=== PATIENT | female | born 1965 | race Caucasian/White ===

== ENCOUNTER 2020-06-13 14:15 | Outpatient (CLI) | payer OTHER, SELFPAY ==
--- NOTE | ~2020-06-13 | US_ITS ---
EXAMINATION: US venous doppler LE RT DATE: 06/13/2020 15:03 INDICATION: Right lower limb pain TECHNIQUE: Sam scale images without and with compression and Doppler images of the right lower extre mity veins were obtained. COMPARISON: None FINDINGS: There is thrombosis in the popliteal and posterior tibial veins. The right common femoral v ein, profunda femoral vein, femoral vein, peroneal trunk, and greater saphenous vein are patent. IMPRESSION: 1. Thrombosis of the right popliteal and posterior tibial veins. Reviewed, dictated and finalized at location B.
== END 2020-06-13 14:16 | disposition home or self-care (01) ==
LOC: ANHIMG 14:18
PROVIDERS: PCP Internal Medicine; Visit Provider Nurse Practitioner
DX: I82.431 Acute embolism and thrombosis of right popliteal vein (principal); I82.441 Acute embolism and thrombosis of right tibial vein
CPT/HCPCS: 93971

== ENCOUNTER 2020-06-13 16:15 | Outpatient (CLI) | payer OTHER, SELFPAY ==
[2020-06-13 16:45] LABS: Basophils Percent Auto 0.6 % (0.2-1.2); Eosinophils Absolute Auto 0.2 K/mm3 (0-0.3); Eosinophils Percent Auto 2.8 % (0-4.4); Hematocrit 39.4 % (37.0-47.0); Hemoglobin 13.1 g/dL (12.0-15.0); Immature Granulocyte Absolute 0.02 K/mm3 (0.00-0.031); Immature Granulocyte Percent A 0.3 % (0-0.5); Lymphocytes Absolute Auto 2.62 K/mm3 (0.9-3.2); Lymphocytes Percent Auto 40.4 % (18.3-44.2); Mean Corpuscular HGB Conc 33.2 g/dl (32-36); Mean Corpuscular Hemoglobin 30.3 pg (26-34); Mean Corpuscular Volume 91.2 fl (80-100); Mean Platelet Volume 10.4 fl (7.4-10.4); Monocytes Absolute Auto 0.5 K/mm3 (0.1-0.6); Neutrophils Absolute Auto 3.1 K/mm3 (1.3-6.7); Neutrophils Percent Auto 47.9 % (45.5-73.1); Platelet Count Result 276 k/mm3 (150-375); Red Blood Count 4.32 M/mm3 (4.2-5.4); Red Cell Distribution Width 12.4 % (11.5-14.5); White Blood Count 6.5 K/mm3 (4.5-10.0)
[2020-06-13 16:58] LABS: Alanine Aminotransferase 22 U/L (4-35); Albumin Level 4.4 g/dL (3.5-5.1); Alkaline Phosphatase 69 U/L (38-126); Anion Gap 6 mmol/L (8-16); Aspartate Amino Transferase 25 U/L (14-36); Bilirubin,Total 0.5 mg/dL (0.2-1.3); Blood Urea Nitrogen 11 mg/dL (7-17); Calcium 8.6 mg/dL (8.4-10.2); Carbon Dioxide 27 mmol/L (22-30); Chloride 106 mmol/L (98-107); Estimated Glomerular Filt Rate > 60; Glucose 91 mg/dL (65-105); Potassium 3.6 mmol/L (3.4-5.0); Sodium 139 mmol/L (137-145)
[2020-06-15 12:24] LABS: Protein S Antigen, Free 99 % normal (50-147)
[2020-06-15 18:55] LABS: APC Ratio 2.7 ratio (>=2.1)
[2020-06-15 20:49] LABS: Antithrombin III Activity 102 % normal (80-135)
[2020-06-18 20:56] LABS: Factor V (Leiden) Mutation NEGATIVE
== END 2020-06-13 16:16 | disposition home or self-care (01) ==
LOC: ANHLAB 16:18
PROVIDERS: PCP Internal Medicine; Visit Provider Nurse Practitioner
DX: I82.409 Acute embolism and thrombosis of unspecified deep veins of unspecified lower extremity (principal)
CPT/HCPCS: 36415; 80053; 81240; 81241; 85025; 85300; 85303; 85306; 85307; 93971

== ENCOUNTER 2020-06-24 16:38 | Emergency (ER) | payer OTHER, SELFPAY ==
[2020-06-24 17:53] VITALS: BP 145/90; PULSE 82; RESP 16; TEMP 36.1; O2SAT 99
--- NOTE | 2020-06-24 17:58 | PC.NURSE ---
[id number] to reach ultrasound to inform of new order for study [id number] staff unable to reach technology advisor to inform of new order from ed
--- NOTE | 2020-06-24 20:23 | ED.EXTPRO ---
HPI - Extremity Problem General Chief complaint: Extremity Problem,Nontraumatic Stated complaint: blood clot in right leg, now has groin pain Time Seen by Provider: 06/24/20 19:26 Source: patient Mode of arrival: ambulatory Limitations: no limitations History of Present Illness HPI Narrative: This is a 55-year-old female that presents the emergency department for right thigh pain. Reports this started earlier today. No known injury or trauma. Reports she was recently diagnosed with a blood clot in her right calf and has been taking Eliquis as prescribed. Reports she was concerned that her blood clot was moving which prompted her to be seen. Denies fever, erythema, edema, chest pain, or shortness of breath. Related Data Home Medications Medication Instructions Recorded Confirmed multivitamin with minerals 1 tablet PO DAILY 01/26/19 05/11/19 topiramate 50 mg tablet 100 mg PO DAILY tablet 06/13/20 06/13/20 Allergies Allergy/AdvReac Type Severity Reaction Status Date / Time No Known Allergies Allergy Verified 06/13/20 13:12 Review of Systems Review of Systems: Narrative: CONSTITUTIONAL: Denies fever CARDIOVASCULAR: Denies chest pain, or edema. RESPIRATORY: Denies dyspnea SKIN: Denies erythema MUSCULOSKELETAL: Reports myalgia. NEUROLOGIC: Denies numbness, or weakness. All systems reviewed & are unremarkable except as noted in HPI and below PMFSH Past Medical History Medical History Chicken pox Chronic bronchitis Depression History of blood clots Migraine Rotator cuff tear Skin cancer Surgical History Surgical History History of bilateral tubal ligation History of carpal tunnel surgery History of repair of right rotator cuff History of surgery on arm left forearm median repair Family History Family History Father Hypertension Family history of cardiovascular disease Family history of Alzheimer's disease Family history of dementia Heart disease Kidney disease Mother Diabetes mellitus Social History Social History Smoking status: Former smoker Smoking end date: 03/04/99 Alcohol intake: current Gender identity (if verbalized by the patient): Female Exam Narrative: Exam Narrative: GENERAL: Well-appearing, well-nourished, and in no acute distress. HEAD: Normocephalic, atraumatic. EYES: EOMI. CHEST: Clear to auscultation. No respiratory distress. No wheezes rales or rhonchi HEART: Regular rate and rhythm. No murmur heard. Normal peripheral pulses. EXTREMITIES: Normal range of motion. No edema, erythema or obvious deformity. Normal DP pulses. Normal sensation SKIN: Warm, dry, no rash. NEURO: No focal deficits. Alert and oriented x3. PSYCH: Normal mood and affect Course Consultations Consultation #1: Spoke with Dr. Chiu about patient Date: 06/24/20 Time: 20:30 Vital Signs Vital signs: Vital Signs Temperature 96.9 F L 06/24/20 17:53 Pulse Rate 82 06/24/20 17:53 Respiratory Rate 16 06/24/20 17:53 Blood Pressure 145/90 H 06/24/20 17:53 Pulse Oximetry 99 06/24/20 17:53 Temperature 96.9 F L 06/24/20 17:53 Pulse Rate 82 06/24/20 17:53 Respiratory Rate 16 06/24/20 17:53 Blood Pressure 145/90 H 06/24/20 17:53 Pulse Oximetry 99 06/24/20 17:53 MDM - Extremity (Nontraumatic) MDM Narrative Medical decision making narrative: Patient presents emergency department for right inner thigh pain that started this afternoon. No injuries or trauma. Normal range of motion. No erythema or edema. Normal peripheral pulses and sensation. Was recently diagnosed with a DVT of the right popliteal and posterior tibial veins. Has been taking Eliquis as prescribed. Today patient presented after I am able to obtain an ultrasound.
[2020-06-24] MEDS: ACETAMINOPHEN 500 MG TABLET 1000 MG PO (20:47)
[2020-06-24 20:49] VITALS: BP 132/80; PULSE 76; RESP 18; O2SAT 99
== END 2020-06-24 20:46 | disposition home or self-care (01) ==
PROVIDERS: Emergency Provider Emergency Medicine; PCP Internal Medicine
DX: M79.651 Pain in right thigh (principal); Z86.718 Personal history of other venous thrombosis and embolism; Z79.01 Long term (current) use of anticoagulants; Z85.828 Personal history of other malignant neoplasm of skin; Z87.891 Personal history of nicotine dependence
CPT/HCPCS: 99282; A9270

== ENCOUNTER 2020-06-25 07:15 | Outpatient (CLI) | payer OTHER, SELFPAY ==
--- NOTE | ~2020-06-25 | US_ITS ---
EXAMINATION: US venous doppler LE RT DATE: 06/25/2020 07:42 INDICATION: Right lower limb pain. TECHNIQUE: Grayscale ultrasound images without and with compression and Doppler ultrasound images of the right lower extremity veins were obtained. COMPARISON: Ultrasound 06/13/2020 FINDINGS: The visualized portions of right common femoral vein, femoral vein, peroneal veins, posterior tibial veins, and greater saphenous vein outflow are patent. There is thrombus in right profunda femoral vei n and popliteal vein. IMPRESSION: 1. Deep vein thrombosis involving right profunda femoral vein and popliteal vein. Reviewed, dictated and finalized at location A. IMPRESSION: 1. Deep vein thrombosis involving right profunda femoral vein and popliteal ve in.
== END 2020-06-25 07:16 | disposition home or self-care (01) ==
LOC: ANHIMG 07:17
PROVIDERS: PCP Internal Medicine; Visit Provider Physician Assistant
DX: I82.411 Acute embolism and thrombosis of right femoral vein (principal); I82.431 Acute embolism and thrombosis of right popliteal vein
CPT/HCPCS: 93971

== ENCOUNTER → 2020-08-10 16:46 | Outpatient (CLI) | payer OTHER, SELFPAY ==
--- NOTE | ~2020-08-10 | MM_ITS ---
EXAMINATION: MM screening josse BI w sandra HISTORY: Screening mammogram TECHNIQUE: Craniocaudal and mediolateral oblique 3-D tomosynthesis images were obtained and synthetic 2-D images were generated. CAD analysis was submitted and interpreted. COMPARISON: 01/12/2017, 01/26/2013 bilateral digital screening mammogram examinations BREAST PARENCHYMAL COMPOSITION: There are scattered areas of fibroglandular density. FINDINGS: There is no evidence of suspicious mass, calcification, or architectural distortion to sugg est malignancy in either breast. There has been no suspicious interval change. IMPRESSION: 1. No mammographic evidence of malignancy. 2. Recommend routine screening mammography in one year. BI-RADS Category 1: Negative Reviewed, dictated and finalized at location A.
== END ==
PROVIDERS: PCP Internal Medicine; Visit Provider Obstetrics & Gynecology
DX: Z12.31 Encounter for screening mammogram for malignant neoplasm of breast (principal)
CPT/HCPCS: 77063; 77067

== ENCOUNTER 2020-10-28 12:38 | Outpatient (CLI) | payer OTHER, SELFPAY ==
--- NOTE | ~2020-10-28 | US_ITS ---
EXAMINATION: US venous doppler LE RT DATE: 10/28/2020 13:11 INDICATION: Acute deep venous thrombosis of the proximal vein of the right lower limb TECHNIQUE: Grayscale ultrasound images without and with compression and Doppler ultrasound images of the right lower extremity veins were obtained. COMPARISON: 06/25/2020 FINDINGS: The visualized portions of right common femoral vein, profunda (deep) femoral vein, femoral vein, pop liteal vein, peroneal trunk, posterior tibial veins, peroneal veins, gastrocnemius vein and greater s aphenous vein outflow are patent. IMPRESSION: 1. No deep venous thrombosis in the right lower limb. Reviewed, dictated and finalized at location B.
== END 2020-10-28 12:39 | disposition home or self-care (01) ==
LOC: ANHIMG 12:45
PROVIDERS: PCP Internal Medicine; Visit Provider Internal Medicine Hematology & Oncology
DX: I82.4Y1 Acute embolism and thrombosis of unspecified deep veins of right proximal lower extremity (principal)
CPT/HCPCS: 93971

== ENCOUNTER 2021-02-10 07:17 | Emergency (ER) | payer OTHER, SELFPAY ==
--- NOTE | ~2021-02-10 | US_ITS ---
EXAMINATION: US venous doppler LE RT DATE: 02/10/2021 08:08 INDICATION: Right lower limb pain swelling TECHNIQUE: Sam scale images without and with compression and Doppler images of the right lower extre mity veins were obtained. COMPARISON: 10/28/2020 FINDINGS: The profunda femoral vein is partially compressible. There is thrombosis of the right dista l femoral vein and right popliteal vein. The right common femoral vein, peroneal trunk, posterior tib ial veins, and greater saphenous vein are patent. IMPRESSION: 1. Thrombosis in the distal femoral, popliteal, profunda femoral veins. Reviewed, dictated and finalized at location A. ICAL INTERVIEWER
[2021-02-10 07:41] VITALS: BP 147/81; PULSE 102; RESP 18; TEMP 36.6; O2SAT 98
--- NOTE | 2021-02-10 08:38 | ED.EXTPRO ---
HPI - Extremity Problem General Chief complaint: Extremity Problem,Nontraumatic Stated complaint: leg pain, hx dvt Time Seen by Provider: 02/10/21 07:24 History of Present Illness HPI Narrative: Patient is a 55-year-old female who presents ER with right lower extremity pain. Ongoing over the last 4 to 5 days. Feels similar to previous DVT. She just discontinued Eliquis 3 months ago. She has had no recent injury or prolonged immobility. She has had a work-up with Dr. Kramer that did not result in finding a genetic clotting disorder. Patient has no chest pain or shortness of breath. She has had no unexplained syncope. Denies any new swelling to the leg. Feels like there is a tightness throughout the entirety of the leg that is tender to touch. No warmth or heat. Related Data Home Medications Medication Instructions Recorded Confirmed multivitamin with minerals 1 tablet PO DAILY 01/26/19 09/15/20 Allergies Allergy/AdvReac Type Severity Reaction Status Date / Time No Known Allergies Allergy Verified 06/13/20 13:12 Review of Systems Review of Systems: All systems reviewed & are unremarkable except as noted in HPI and below Constitutional: Constitutional: Denies chills, Denies fever(s) and Denies weakness Cardiovascular: Cardiovascular: Denies chest pain, Denies rapid heart rate and Denies radiating jaw, neck or arm pain Respiratory: Respiratory: Denies cough and Denies dyspnea Musculoskeletal: Musculoskeletal: Denies arthralgias and Denies joint swelling Comments: Right leg pain Neurologic: Denies syncope, Denies focal weakness and Denies numbness PMFSH Past Medical History Medical History Chicken pox Chronic bronchitis Depression History of blood clots Migraine Rotator cuff tear Skin cancer Surgical History Surgical History History of bilateral tubal ligation History of carpal tunnel surgery History of repair of right rotator cuff History of surgery on arm left forearm median repair Family History Family History (Updated 07/04/20 @ 09:05 by Eli Damon CMA) Father Hypertension Family history of cardiovascular disease Family history of Alzheimer's disease Family history of dementia Heart disease Kidney disease Blood clot associated with vein wall inflammation Mother Diabetes mellitus Cerebrovascular accident Social History Social History (Reviewed 05/03/21 @ 09:03 by JAVID Duke Smoking status: Former smoker Smoking end date: 03/04/99 Alcohol intake: current Alcohol use details: occasionally Gender identity (if verbalized by the patient): Female Exam Narrative: GENERAL: Well-appearing, well-nourished, and in no acute distress. HEAD: Normocephalic, atraumatic. ENT: Mucous membranes moist. CHEST: Clear to auscultation. No respiratory distress. HEART: Regular rate and rhythm. Normal peripheral pulses. EXTREMITIES: Normal range of motion. No edema. Right lower extremity tender to touch without warmth/redness. Normal dorsalis pedis pulses bilaterally. SKIN: Warm, dry, no rash. NEURO: Alert and oriented x3. PSYCH: Normal mood and affect. Course Course Emergency Course: Contacted patient's PCP. Will initiate Eliquis. Patient is to follow-up in 1 to 2 weeks for further discussion about prolonged anticoagulation therapy. Patient is aware of diagnosis and treatment plan. No additional concerns. Return precautions discussed. Vital Signs Vital signs: Vital Signs Temperature 97.9 F 02/10/21 07:41 Pulse Rate 102 H 02/10/21 07:41 Respiratory Rate 18 02/10/21 07:41 Blood Pressure 147/81 H 02/10/21 07:41 Pulse Oximetry 98 02/10/21 07:41 Temperature 97.9 F 02/10/21 07:41 Pulse Rate 102 H 02/10/21 07:41 Respiratory Rate 18 02/10/21 07:41 Blood Pressure 147/81 H 02/10/21 07:41 Pulse Oximetry 98 02/10/21 07:41
== END 2021-02-10 09:08 | disposition home or self-care (01) ==
PROVIDERS: Emergency Provider Emergency Medicine; PCP Internal Medicine
DX: I82.431 Acute embolism and thrombosis of right popliteal vein (principal); I82.411 Acute embolism and thrombosis of right femoral vein; Z85.828 Personal history of other malignant neoplasm of skin; Z87.891 Personal history of nicotine dependence
CPT/HCPCS: 93971; 99284

== ENCOUNTER → 2021-06-06 08:06 | Outpatient (CLI) | payer OTHER, SELFPAY ==
[2021-06-06 11:34] LABS: SARS-CoV-2 RNA PCR Negative
== END ==
PROVIDERS: PCP Internal Medicine; Visit Provider Clinical Nurse Specialist
DX: J32.9 Chronic sinusitis, unspecified (principal); Z20.822 Contact with and (suspected) exposure to COVID-19
CPT/HCPCS: C9803; U0003; U0005

== ENCOUNTER → 2021-10-17 11:05 | Outpatient (CLI) | payer OTHER, SELFPAY ==
--- NOTE | ~2021-10-17 | US_ITS ---
US abdomen limited INDICATION: Right upper quadrant pain PROCEDURE: Realtime right upper abdominal ultrasound. COMPARISON: No prior studies for comparison. FINDINGS: The pancreas is normal without focal mass or pancreatic ductal dilation. Liver echotexture is increased, consistent with fatty infiltration There is normal directional flow in the portal vei n. The gallbladder is normal without stones, gallbladder wall thickening or pericholecystic fluid. Comm on bile duct measures 5 mm. No sonographic Garcia's sign. IMPRESSION: 1: Hepatic steatosis. Reviewed, dictated and finalized at location B. IMPRESSION: 1: Hepatic steatosis.
== END ==
PROVIDERS: PCP Internal Medicine; Visit Provider Nurse Practitioner
DX: R10.11 Right upper quadrant pain (principal); K76.0 Fatty (change of) liver, not elsewhere classified
CPT/HCPCS: 76705

== ENCOUNTER 2021-10-20 07:32 | Outpatient (CLI) | payer OTHER, SELFPAY ==
--- NOTE | ~2021-10-20 | NM_ITS ---
EXAMINATION: NM hepatobiliary wo pharm DATE: 10/20/2021 10:38 INDICATION: Right upper quadrant abdominal pain COMPARISON: None. TECHNIQUE: 5.2 mCi Tc-99m mebrofenin (Choletec) was administered intravenously. Scintigraphic images of the abdomen were obtained for one hour. At the 1 hour time point, the patient drank 8 oz Ensure, and imaging was continued for 60 minutes. Gallbladder ejection fraction was calculated by the technol ogist. FINDINGS: There is normal clearance of radiotracer from the blood pool. There is homogeneous tracer u ptake by the liver. Activity progresses to the bowel and gallbladder. The gallbladder ejection fract ion (GBEF) is 28%. Note that with this technique, normal GBEF >= 33%. IMPRESSION: 1. Decreased gallbladder ejection fraction which could be seen with gallbladder dysfunction or chron ic cholecystitis in the appropriate clinical setting. Reviewed, dictated and finalized at location A. IMPRESSION: 1. Decreased gallbladder ejection fraction which could be seen with gallbladde r dysfunction or chronic cholecystitis in the appropriate clinical setting.
== END 2021-10-20 07:33 | disposition home or self-care (01) ==
LOC: ANHIMG 07:35
PROVIDERS: PCP Internal Medicine; Visit Provider Nurse Practitioner
DX: R10.11 Right upper quadrant pain (principal)
CPT/HCPCS: 78226; A9537

== ENCOUNTER 2021-10-26 16:29 | Outpatient (CLI) | payer OTHER, SELFPAY ==
[2021-10-26 16:49] LABS: Basophils Absolute Auto 0.1 K/mm3 (0.0-0.1); Basophils Percent Auto 0.8 % (0.2-1.2); Eosinophils Absolute Auto 0.2 K/mm3 (0-0.3); Eosinophils Percent Auto 2.8 % (0-4.4); Hematocrit 40.5 % (37.0-47.0); Hemoglobin 12.9 g/dL (12.0-15.0); Immature Granulocyte Absolute 0.02 K/mm3 (0.00-0.031); Immature Granulocyte Percent A 0.3 % (0-0.5); Lymphocytes Absolute Auto 3.31 K/mm3 (0.9-3.2); Lymphocytes Percent Auto 46.4 % (18.3-44.2); Mean Corpuscular HGB Conc 31.9 g/dl (32-36); Mean Corpuscular Hemoglobin 30.2 pg (26-34); Mean Corpuscular Volume 94.8 fl (80-100); Mean Platelet Volume 10.2 fl (7.4-10.4); Monocytes Absolute Auto 0.7 K/mm3 (0.1-0.6); Monocytes Percent Auto 9.8 % (2.6-8.5); Neutrophils Absolute Auto 2.8 K/mm3 (1.3-6.7); Neutrophils Percent Auto 39.9 % (45.5-73.1); Platelet Count Result 274 k/mm3 (150-375); Red Blood Count 4.27 M/mm3 (4.2-5.4); Red Cell Distribution Width 12.7 % (11.5-14.5); White Blood Count 7.1 K/mm3 (4.5-10.0)
[2021-10-26 17:02] LABS: Alanine Aminotransferase 25 U/L (6-35); Albumin Level 4.3 g/dL (3.5-5.1); Alkaline Phosphatase 72 U/L (38-126); Anion Gap 9 mmol/L (8-16); Aspartate Amino Transferase 23 U/L (14-36); Bilirubin,Total 0.3 mg/dL (0.2-1.3); Blood Urea Nitrogen 15 mg/dL (7-17); Calcium 8.5 mg/dL (8.4-10.2); Carbon Dioxide 24 mmol/L (22-30); Chloride 109 mmol/L (98-107); Estimated Glomerular Filt Rate > 60; Glucose 103 mg/dL (65-110); Potassium 4.6 mmol/L (3.4-5.0); Sodium 142 mmol/L (137-145)
== END 2021-10-26 16:30 | disposition home or self-care (01) ==
LOC: ANHLAB 16:30
PROVIDERS: PCP Internal Medicine; Visit Provider Nurse Practitioner
DX: Z13.29 Encounter for screening for other suspected endocrine disorder (principal)
CPT/HCPCS: 36415; 80053; 85025

== ENCOUNTER 2021-11-01 01:46 | Day surgery (SDC) | payer OTHER, SELFPAY ==
[2021-10-30 09:26] VITALS: BMI 37.9
--- NOTE | 2021-10-30 09:38 | PC.NURSE ---
Report to the Outpatient Waiting Room, entrance under the green pavilion located off [facility], at time 1130 on date 11/01/21. OR Time: 1330. - You and your visitor will be asked to self-screen and do not enter if you have any COVID symptoms. - Only one visitor and NO children visitors are allowed at this time. - The patient visitor is requested to leave or wait in car when not with patient due to restrictions. - A mask is required within the hospital. Patients may have clear liquids (water, carbonated beverages, clear teas, apple juice) until 3 hours prior to surgery with a maximum of 20 ounces. - No food from midnight until time of surgery Take the following medications with a SIP of water the morning of surgery: DULOXETINE, TOPIRAMATE Medications to discontinue per physician: RIRI Date to take last dose: 10/30/21 Please no make-up, nail qatari, hairspray, perfume, deodorant, or body powder the day of surgery. No jewelry (including any body piercings) or valuables the day of surgery, leave them at home. Please take a shower or bath the night before, or the morning of, surgery with an antibacterial soap(HIBICLENS). Wear comfortable, loose fitting clothing. - Jewelry must be removed prior to entering the operating room. Rings and piercings that are not removed may be cut off. - The hospital will not accept responsibility for valuables. - Please leave all valuables, including medications, at home the day of surgery. If you are going home after surgery, a licensed driver guard must drive you home. - NO public transportation without another adult. - We recommend that an adult stay with you for 24 hours following discharge. - We also recommend that you do not drive, make important decision, drink alcoholic beverages, or take any drugs that were not prescribed by your health care provider for at least 24 hours after your discharge time. Follow any additional instructions given to you from your surgeon. If you or anyone in your household have experienced Covid symptoms in the past week, please notify your surgeon or the nurse liaison at the phone number below for possible testing. Telephone instructions given to PT Kerri BUI and asked if any additional questions and then verbalized understanding. Patient advised to call surgeon office or pre surgery nurse liaison [phone] if any additional questions.
--- NOTE | 2021-10-31 13:27 | P.PNAN_ITS ---
Anes - Initial Pre Proc Eval Procedure: Operation Date: 11/01/21 13:30 Proposed Procedures p Laparoscopic Cholecystectomy - Chrissy Parisi MD Date/Time: 10/31/21 13:27 Surgeon: Chrissy Parisi MD Pre Op Diagnosis: Chronic Cholecystitis Patient Data Age: 56 Gender: F Height: 1.6 m Weight: 97.07 kg Allergies Allergy/AdvReac Type Severity Reaction Status Date / Time No Known Allergies Allergy Verified 11/01/21 11:35 Home Medications Medication Instructions Recorded Confirmed Type duloxetine 60 mg capsule,delayed 60 mg PO DAILY #90 caps 05/01/21 11/01/21 Rx release topiramate 50 mg tablet 100 mg PO DAILY #270 tabs 05/11/21 11/01/21 Rx apixaban 5 mg tablet (Eliquis) 5 mg PO BID #60 tabs 08/10/21 11/01/21 Rx calcium carbonate 200 mg calcium 200 mg PO BID 10/17/21 11/01/21 History (500 mg) chewable tablet (Tums) Patient hx anesthesia problems: none Family hx anesthesia problems: none Results Review: All pre-operative results and documents have been reviewed as part of the pre- operative evaluation. [facility] Past Medical History Medical History (Updated 10/31/21 @ 13:28 by Arnold Ortiz MD) Chicken pox Chronic bronchitis Depression History of blood clots Hypercoagulable state Migraine Obesity Rotator cuff tear Skin cancer Surgical History Surgical History History of bilateral tubal ligation History of carpal tunnel surgery History of repair of right rotator cuff History of surgery on arm left forearm median repair Family History Family History Father Hypertension Family history of cardiovascular disease Family history of Alzheimer's disease Family history of dementia Heart disease Kidney disease Blood clot associated with vein wall inflammation Mother Diabetes mellitus Cerebrovascular accident Social History Social History Smoking packs per day: 0.5 Smoking cigarettes per day: 10.0 Years smoked: 15 Smoking pack-years: 7.50 Smoking status: Former smoker Tobacco type: cigarettes Smoking end date: 03/04/99 Alcohol intake: current Drinks per week: 2 Alcohol use details: occasionally Substance use: never Substance use type: does not use Living arrangements: with family Gender identity (if verbalized by the patient): Female Spiritual care concerns: No Anes - Eval Final PreProcedure Day of Procedure 10/31/21 13:27 Patient weight: obese Heart: regular rate and rhythm Lungs: clear to auscultation and normal air movement Airway: Mallampati scale class II Neurological: alert and oriented Last oral intake: >/= 8 hours ASA classification: III Emergent: no Anesthetic plan: proceed Anesthesia type and monitoring: general ETT Results Review: All pre-operative results and documents have been reviewed as part of the pre- operative evaluation. Informed Consent: The patient's anesthetic plan and its attendant risks and benefits were discussed with the patient/family/POA. Questions were solicited and answers provided to the satisfaction of the patient/family/POA.
[2021-11-01] VITALS (10 sets, daily range): BP systolic 88–142; BP diastolic 41–87; PULSE 42–76; RESP 10–20; TEMP 36.3; O2SAT 95–99
[2021-11-01] MEDS: LACTATED RINGERS 1,000 ML 30 ML IV CONT ×3 (12:35→16:35)
[2021-11-01] MEDS: ACETAMINOPHEN 500 MG TABLET 1000 MG PO (12:48)
[2021-11-01] MEDS: KETOROLAC 15 MG/ML VIAL (*BKC) IV PUSH (12:50)
[2021-11-01 12:57] LABS: Amylase 63 U/L (30-110); Lipase 99 U/L (23-300)
--- NOTE | 2021-11-01 13:35 | WPDHPUPDATE1 ---
History and Physical Update Update Date/Time: 11/01/21 13:35 History and Physical has been reviewed, including an updated exam of the patient. There are NO changes in the patient's condition. Risks, benefits, and alternatives have been discussed and questions answered. Patient agrees to proceed with procedure.
[2021-11-01] MEDS: ceFAZolin 2 GM/D5W 50 ML 2 GM/50 ML BAG IVPB (13:55)
--- NOTE | 2021-11-01 15:00 | W.PM.PROC2 ---
Procedure Note - Detailed Date of Procedure 11/01/21 Pre-op Diagnosis Chronic Cholecystitis Post-op Diagnosis Same Procedure Performed Laparoscopic cholecystectomy Surgeon Chrissy Parisi MD Anesthesia General Indications 56-year-old female presented to the office complaining of postprandial right upper quadrant abdominal pain associated with nausea and vomiting. Workup including imaging significant for chronic cholecystitis. Findings chronic cholecystitis Description of Procedure The patient was taken to the operating room placed in the supine position. After adequate induction of general anesthesia, the patient was prepped and draped in normal sterile fashion. A time-out was then performed to verify the patient's identity as well as the procedure being performed. I then made a 5 mm incision in the infraumbilical region. Through this, a Veress needle was placed into the peritoneal cavity and CO2 gas was then insufflated. After adequate pneumoperitoneum was achieved, the Veress needle was removed and a 5 mm optiview trocar was placed through this incision under direct visualization. I then placed the laparoscope through this trocar site and under direct visualization placed a further 12 mm subxiphoid port as well as 2 additional 5 mm ports in the right upper abdomen. The gallbladder was then identified and was noted to be moderately inflamed and distended. I was able to place a grasper at the dome of the gallbladder and this was retracted anterior and cephalad up over the liver. A 2nd retractor was then placed at the infundibulum and retracted laterally, this allowed visualization of the triangle of Calot. I then was able to visualize the cystic duct in its entirety from its proximal insertion into the gallbladder, to its distal junction with the common hepatic/common bile duct junction. At this point, I carefully skeletonized the proximal cystic duct with the [place] dissector. I then clipped and transected the proximal cystic duct. Next I visualized the cystic artery. Again the artery was skeletonized, clipped, and transected. I then used the Bovie cautery to take down the peritoneal attachments of the gallbladder off the liver bed. This was somewhat difficult given the amount of inflammation in the posterior space, as well as an intrahepatic gallbladder. Once the gallbladder specimen was completely detached, an endo-pouch was placed through the 12 mm port site. I then placed the gallbladder specimen into the Endo pouch and removed the endo-pouch from the 12 mm port site. The specimen will now be sent to pathology for further review. I then copiously irrigated the right upper quadrant. Hemostasis was noted in the liver bed, the clips were noted to be in good position on both the cystic duct stump and the cystic artery stump. No other pathology was noted in the right upper quadrant. I then moved the laparoscope to the subxiphoid port. No iatrogenic injury or other pathology was noted in the lower abdomen. I then closed the 12 mm trocar site under direct visualization using the Dayo cone and 0 Vicryl suture. At this point, the abdomen was desufflated and all ports removed. All port sites were then closed with 4.O Monocryl subcuticular sutures. Dermabond was placed on each incision. The patient tolerated the procedure well, was extubated in the operating room postoperative and will be transferred to the recovery room in stable condition Estimated Blood Loss 10 Drains No Packing No Pathology Yes Complications No immediate complications Condition Stable Disposition PACU [facility] Billing Surgery - Charge Forward: Surgery Billing
[2021-11-01] MEDS: ONDANSETRON INJ 4 MG/2 ML VIAL IV PUSH (15:27)
[2021-11-01] MEDS: fentaNYL CITRATE INJ (*CRX) 100 MCG/2 ML VIAL 25 MCG IV PUSH ×8 (15:27→16:53)
[2021-11-01] MEDS: SCOPOLAMINE 1.5 MG PATCH TRANSDERM (16:42)
[2021-11-01] MEDS: diphenhydrAMINE HCl INJ 50 MG/ML VIAL 25 MG IV PUSH (16:42)
[2021-11-01] MEDS: oxyCODONE HCL (*CRX) 5 MG TAB IR PO (17:22)
== END 2021-11-01 17:48 | disposition home or self-care (01) ==
PROVIDERS: PCP Internal Medicine; Visit Provider Surgery
PROC: 0FT44ZZ Resection of Gallbladder, Percutaneous Endoscopic Approach (ICD-10-PCS; CPT 47562; principal; 2021-11-01 13:30)
DX: K81.1 Chronic cholecystitis (principal); Z79.01 Long term (current) use of anticoagulants; Z86.718 Personal history of other venous thrombosis and embolism; Z87.891 Personal history of nicotine dependence; E66.9 Obesity, unspecified; Z68.37 Body mass index [BMI] 37.0-37.9, adult
CPT/HCPCS: 47562; 36415; 82150; 83690; 86850; 86900; 86901; 88304; A9270; J0690; J1100; J1200; J1885; J2250; J2405; J2704; J2710; J3010; J7120

== ENCOUNTER 2021-11-15 11:59 | Outpatient (CLI) | payer OTHER, SELFPAY ==
[2021-11-15 12:25] LABS: Alanine Aminotransferase 36 U/L (6-35); Albumin Level 4.3 g/dL (3.5-5.1); Alkaline Phosphatase 98 U/L (38-126); Anion Gap 12 mmol/L (8-16); Aspartate Amino Transferase 29 U/L (14-36); Bilirubin,Total 0.7 mg/dL (0.2-1.3); Blood Urea Nitrogen 14 mg/dL (7-17); Calcium 8.9 mg/dL (8.4-10.2); Carbon Dioxide 21 mmol/L (22-30); Chloride 106 mmol/L (98-107); Estimated Glomerular Filt Rate > 60; Glucose 102 mg/dL (65-110); Lipase 133 U/L (23-300); Potassium 4.1 mmol/L (3.4-5.0); Sodium 139 mmol/L (137-145)
== END 2021-11-15 12:00 | disposition home or self-care (01) ==
PROVIDERS: PCP Internal Medicine; Visit Provider Surgery
DX: R10.13 Epigastric pain (principal)
CPT/HCPCS: 36415; 80053; 83690

== ENCOUNTER → 2021-11-21 09:35 | Outpatient (CLI) | payer OTHER, SELFPAY ==
--- NOTE | ~2021-11-21 | CT_ITS ---
EXAMINATION: CT abdomen wo con DATE: 11/21/2021 09:59 INDICATION: Epigastric pain. Status post cholecystectomy. TECHNIQUE: Computed tomography (CT) of the abdomen and pelvis was performed without intravenous contr ast. The dose-length product was 697.81 mGy-cm. Automated exposure control and iterative reconstructi on technique were employed. COMPARISON: None. FINDINGS: Lung bases are unremarkable. No significant pleural or pericardial effusion. Heart size nor mal. Status post cholecystectomy. There are left renal parapelvic cysts. No renal stones. Status post cholecystectomy. No significant hiatal hernia. The liver, spleen, pancreas, adrenal glands and right kidney are unremarkable. No significant hydrone phrosis. Nonobstructive bowel gas pattern. No free air or free fluid. No acute osseous abnormality. IMPRESSION: 1. No acute abdominal abnormality. Reviewed, dictated and finalized at location A.
== END ==
PROVIDERS: PCP Internal Medicine; Visit Provider Surgery
DX: R10.13 Epigastric pain (principal)
CPT/HCPCS: 74150

== ENCOUNTER 2021-12-04 02:24 | Day surgery (SDC) | payer OTHER, SELFPAY ==
[2021-11-23 13:23] VITALS: BMI 37.8
[2021-12-04 12:17] VITALS: BP 126/78; PULSE 95; RESP 16; TEMP 36.2; O2SAT 99; BMI 37.2
[2021-12-04] MEDS: LACTATED RINGERS 1,000 ML 150 ML IV CONT (12:27)
--- NOTE | 2021-12-04 12:53 | WPDANESEPPF ---
Anes - Initial Pre Proc Eval Procedure: Operation Date: 12/04/21 13:30 Proposed Procedures p Esophagogastroduodenoscopy - Ponce Bates MD Date/Time: 12/04/21 12:53 Surgeon: Ponce Bates MD Pre Op Diagnosis: Epigastric pain Patient Data Age: 56 Gender: F Height: 1.6 m Weight: 95.3 kg Last Vital Signs Temp 97.2 F L 12/04/21 12:17 Pulse 95 12/04/21 12:17 Resp 16 12/04/21 12:17 BP 126/78 12/04/21 12:17 Pulse Ox 99 12/04/21 12:17 O2 Del Method Room Air 12/04/21 12:17 Allergies Allergy/AdvReac Type Severity Reaction Status Date / Time No Known Allergies Allergy Verified 12/04/21 12:15 Home Medications Medication Instructions Recorded Confirmed Type topiramate 50 mg tablet 100 mg PO DAILY #270 tabs 05/11/21 11/23/21 Rx apixaban 5 mg tablet (Eliquis) 5 mg PO BID #60 tabs 08/10/21 11/23/21 Rx duloxetine 60 mg capsule,delayed See Rx Instructions .Route 11/27/21 12/04/21 Rx release .COMPLEX #90 caps tramadol 50 mg tablet 50 mg PO Q6H PRN pain #30 tabs 12/02/21 12/04/21 Rx Patient hx anesthesia problems: none Family hx anesthesia problems: none Results Review: All pre-operative results and documents have been reviewed as part of the pre-operative evaluation. [facility] Past Medical History Medical History Chicken pox Chronic bronchitis Depression History of blood clots Hypercoagulable state Migraine Obesity Rotator cuff tear Skin cancer Surgical History Surgical History History of bilateral tubal ligation History of carpal tunnel surgery History of repair of right rotator cuff History of surgery on arm left forearm median repair Hx laparoscopic cholecystectomy 11/01/21 Family History Family History Father Hypertension Family history of cardiovascular disease Family history of Alzheimer's disease Family history of dementia Heart disease Kidney disease Blood clot associated with vein wall inflammation Mother Diabetes mellitus Cerebrovascular accident Social History Social History Smoking packs per day: 0.5 Smoking cigarettes per day: 10.0 Years smoked: 15 Smoking pack-years: 7.50 Smoking status: Former smoker Tobacco type: cigarettes Smoking end date: 03/04/99 Alcohol intake: current Drinks per week: 2 Alcohol use details: WINE Substance use: never Substance use type: does not use Living arrangements: with family Gender identity (if verbalized by the patient): Female Spiritual care concerns: No Anes - Eval Final PreProcedure Day of Procedure 12/04/21 12:53 Patient weight: obese Heart: regular rate and rhythm Lungs: clear to auscultation Airway: Mallampati scale class II Neurological: alert and oriented Last oral intake: >/= 8 hours ASA classification: III Emergent: no Anesthetic plan: proceed Anesthesia type and monitoring: general GIVS and standard monitoring Results Review: All pre-operative results and documents have been reviewed as part of the pre-operative evaluation. Informed Consent: The patient's anesthetic plan and its attendant risks and benefits were discussed with the patient/family/POA. Questions were solicited and answers provided to the satisfaction of the patient/family/POA.
--- NOTE | 2021-12-04 13:05 | PM.HPGS ---
History of Present Illness History of Present Illness Consent: Risks, benefits, and alternatives have been discussed and questions answered. Patient agrees to proceed with procedure. Chief complaint: Epigastric pain Narrative: Shirin Allen is a 56 year old female with epigastric pain, somehow improved after cholecystectomy but not gone, never had egd Review of Systems Constitutional: Constitutional: Denies headache(s) and Denies weakness Eyes: Eyes: Denies blurry vision ENT: Reports Normal hearing present, Denies headache(s) and Denies neck pain Cardiovascular: Cardiovascular: Denies chest pain and Denies dyspnea Respiratory: Respiratory: Denies dyspnea Gastrointestinal: Gastrointestinal: Reports no additional gastrointestinal complaints Genitourinary: Genitourinary: Denies dysuria Musculoskeletal: Musculoskeletal: Denies neck pain Integumentary/Breasts: Skin/Breast: Denies dry skin Neurologic: Reports Normal hearing present, Denies headache(s) and Denies weakness Psychiatric: Psychiatric: Denies anxiety Endocrine: Endocrine: Denies change in body appearance Hematologic/Lymphatic: Hematologic/Lymphatic: Denies easy bleeding Allergic/Immunologic: Allergic/Immunologic: Denies urticaria PMFSH Past Medical History Medical History (Updated 11/15/21 @ 09:36 by Silvia Oropeza CMA) Chicken pox Chronic bronchitis Depression History of blood clots Hypercoagulable state Migraine Obesity Rotator cuff tear Skin cancer Surgical History Surgical History (Updated 12/04/21 @ 13:10 by Ponce Bates MD) History of bilateral tubal ligation History of carpal tunnel surgery History of repair of right rotator cuff History of surgery on arm left forearm median repair Hx laparoscopic cholecystectomy 11/01/21 Family History Family History Father Hypertension Family history of cardiovascular disease Family history of Alzheimer's disease Family history of dementia Heart disease Kidney disease Blood clot associated with vein wall inflammation Mother Diabetes mellitus Cerebrovascular accident Social History Social History Smoking packs per day: 0.5 Smoking cigarettes per day: 10.0 Years smoked: 15 Smoking pack-years: 7.50 Smoking status: Former smoker Tobacco type: cigarettes Smoking end date: 03/04/99 Alcohol intake: current Drinks per week: 2 Alcohol use details: WINE Substance use: never Substance use type: does not use Living arrangements: with family Gender identity (if verbalized by the patient): Female Spiritual care concerns: No Meds Home Medications and Allergies Home Medications Medication Instructions Recorded Confirmed Type topiramate 50 mg tablet 100 mg PO DAILY #270 tabs 05/11/21 11/23/21 Rx apixaban 5 mg tablet (Eliquis) 5 mg PO BID #60 tabs 08/10/21 11/23/21 Rx duloxetine 60 mg capsule,delayed See Rx Instructions .Route 11/27/21 12/04/21 Rx release .COMPLEX #90 caps tramadol 50 mg tablet 50 mg PO Q6H PRN pain #30 tabs 12/02/21 12/04/21 Rx Allergies Allergy/AdvReac Type Severity Reaction Status Date / Time No Known Allergies Allergy Verified 12/04/21 12:15 Vital Signs Vital Signs - 24 hr 12/04/21 12:17 Temperature 97.2 F L Pulse Rate 95 Respiratory Rate 16 Blood Pressure 126/78 Pulse Oximetry 99 Oxygen Delivery Room Air Exam Const: General: comfortable and no acute distress HENMT: Face/Nose/Sinus: Normal nares present Eyes: General: appearance normal, both eyes and all related structures Neck: Neck: no JVD Resp: Auscultation: clear to auscultation bilaterally Cardio: Rate: regular rate Rhythm: regular rhythm GI: Inspection: non-distended GI Palp: Yes Soft to palpation Skin: General skin exam: normal color Neuro: General: gait normal Speech: normal speech Extrem
[2021-12-04 13:21] VITALS: BP 104/64; PULSE 80; RESP 25; O2SAT 99
[2021-12-04 13:31] VITALS: BP 105/86; PULSE 76; RESP 18; O2SAT 98
[2021-12-04 13:41] VITALS: BP 105/67; PULSE 71; RESP 20; O2SAT 98
== END 2021-12-04 13:55 | disposition home or self-care (01) ==
PROVIDERS: PCP Internal Medicine; Visit Provider Internal Medicine Gastroenterology
PROC: 0DJ08ZZ Inspection of Upper Intestinal Tract, Via Natural or Artificial Opening Endoscopic (ICD-10-PCS; CPT 43235; principal; 2021-12-04 13:30)
DX: R10.13 Epigastric pain (principal); Z90.49 Acquired absence of other specified parts of digestive tract; K29.50 Unspecified chronic gastritis without bleeding; F32.A Depression, unspecified; Z87.891 Personal history of nicotine dependence; Z79.01 Long term (current) use of anticoagulants; E66.9 Obesity, unspecified; Z68.37 Body mass index [BMI] 37.0-37.9, adult
CPT/HCPCS: 43239; 88305; J2704; J7120

== ENCOUNTER 2023-05-03 11:14 | Outpatient (CLI) | payer OTHER, SELFPAY ==
--- NOTE | ~2023-05-03 | XR_ITS ---
EXAMINATION: XR chest 2V DATE: 05/03/2023 11:28 INDICATION: Shortness of breath. TECHNIQUE: Frontal and lateral views of the chest were obtained. COMPARISON: CT abdomen 11/21/2021 FINDINGS: There is no pneumonia, pleural effusion, or pneumothorax. The heart size is normal. Surgica l clips in the right upper quadrant are likely from cholecystectomy. There is a suture anchor in righ t humeral head. IMPRESSION: 1. No acute cardiopulmonary disease. Reviewed, dictated and finalized at location A. PUMPER
== END 2023-05-03 11:15 | disposition home or self-care (01) ==
LOC: ANHIMG 11:20
PROVIDERS: PCP Internal Medicine; Visit Provider Nurse Practitioner
DX: R06.02 Shortness of breath (principal); J40 Bronchitis, not specified as acute or chronic
CPT/HCPCS: 71046

== ENCOUNTER 2023-07-18 07:20 | Day surgery (SDC) | payer OTHER, SELFPAY ==
[2023-06-07 09:09] VITALS: BMI 38.8
--- NOTE | 2023-07-10 08:48 | SUR.PREOP ---
Pt scheduled for screening colonoscopy at [facility] for 07/18/23. Pt takes Eliquis due to previous DVTs. Blood thinner hold clearance sent to prescribing physician (Dr. Chiu) who states yes it is okay for pt to hold Eliquis for 2 days. He states small increased risk of another DVT/PE and that ideally, pt would stay on anticoagulation. This RN discussed Dr. Chiu's note with Dr. Cain who will be performing procedure, per Dr. Cain pt to hold Eliquis for 2 days for colonoscopy. Pt aware of need to hold.
[2023-07-18 08:19] VITALS: BP 123/75; PULSE 88; RESP 18; TEMP 36.4; O2SAT 97; BMI 37.9
[2023-07-18] MEDS: LACTATED RINGERS 1,000 ML 150 ML IV CONT (08:37)
--- NOTE | 2023-07-18 08:49 | PM.HPGS ---
History of Present Illness History of Present Illness Consent: Risks, benefits, and alternatives have been discussed and questions answered. Patient agrees to proceed with procedure. Chief complaint: Neoplasm screening Narrative: Shirin Allen is a 58 year old female presents for screening colonoscopy. Patient's current weight appetite and bowel movements are normal. Patient denies abdominal pain. She has had no bleeding. Family history is noncontributory. Review of Systems Review of Systems: All systems reviewed & are unremarkable except as noted in HPI and below PMFSH Past Medical History Medical History (Updated 06/06/23 @ 09:09 by Gabriela Nicole NP) Chicken pox Chronic bronchitis Depression History of blood clots Hypercoagulable state Migraine Obesity Rotator cuff tear Skin cancer Surgical History Surgical History History of bilateral tubal ligation History of carpal tunnel surgery History of repair of right rotator cuff History of surgery on arm left forearm median repair Hx laparoscopic cholecystectomy 11/01/21 Family History Family History Father Hypertension Family history of cardiovascular disease Family history of Alzheimer's disease Family history of dementia Heart disease Kidney disease Blood clot associated with vein wall inflammation Mother Diabetes mellitus Cerebrovascular accident Social History Social History (Updated 06/06/23 @ 08:29 by Allyssa Walker [facility]) Smoking packs per day: 0.5 Smoking cigarettes per day: 10.0 Years smoked: 15 Smoking pack-years: 7.50 Smoking status: Former smoker Tobacco type: cigarettes Smoking end date: 03/04/99 Alcohol intake: current Drinks per week: 2 Alcohol use details: 4-6 on weekends Substance use: never Substance use type: does not use Lack of Transportation: No Lack of Food: Never True Current Housing: I Have Housing Concerned About Future Housing: No Difficulty Paying Gas/Electric Bills: No Difficulty Paying for Meds: No Currently Unemployed: No Education: High School Diploma/GED Difficulty w/ Childcare or Family Care: No Living arrangements: with family Gender identity (if verbalized by the patient): Female Spiritual care concerns: No Meds Home Medications and Allergies Home Medications Medication Instructions Recorded Confirmed Type topiramate 50 mg tablet 100 mg PO DAILY #180 tabs 01/02/23 07/18/23 Rx albuterol sulfate 90 mcg/actuation 1 inh inhalation Q4H PRN shortness 05/01/23 07/18/23 Rx aerosol inhaler of breath or wheezing #8.5 grams apixaban 5 mg tablet (Eliquis) 5 mg PO BID #180 tabs 05/17/23 07/18/23 Rx cholecalciferol (vitamin D3) 1,250 1,250 mcg PO WEEKLY #8 caps 06/06/23 07/18/23 Rx mcg (50,000 unit) capsule duloxetine 60 mg capsule,delayed 60 mg PO DAILY #90 caps 06/06/23 07/18/23 Rx release Allergies Allergy/AdvReac Type Severity Reaction Status Date / Time No Known Allergies Allergy Verified 07/18/23 08:12 Vital Signs Vital Signs - 24 hr 07/18/23 08:19 Temperature 97.6 F Pulse Rate 88 Respiratory Rate 18 Blood Pressure 123/75 Pulse Oximetry 97 Oxygen Delivery Room Air Exam Narrative: Physical exam reveals patient to be alert. Is stable. HEENT is unremarkable. Patient is anicteric. Lungs are clear to auscultation and percussion. Heart is extra sounds. Abdomen bowel sounds are present soft nontender with no organomegaly. Digital external rectal exam is normal. Assessment and Plan Assessment and plan (1) Screening for colon cancer: Code(s): Z12.11 - Encounter for screening for malignant neoplasm of colon Status: Acute Assessment and Plan: Patient presents for screening colonoscopy. She appears to be at average risk for colon polyps. Further recommendations may be given after endosc
--- NOTE | 2023-07-18 09:15 | WPDANESEPPF ---
Anes - Initial Pre Proc Eval Procedure: Operation Date: 07/18/23 09:30 Proposed Procedures p Screening Colonoscopy - Otoniel Cain MD Date/Time: 07/18/23 09:15 Surgeon: Otoniel Cain MD Pre Op Diagnosis: Neoplasm screening Patient Data Age: 58 Gender: F Height: 1.63 m Weight: 100.3 kg Last Vital Signs Temp 36.4 C 07/18/23 08:19 Pulse 88 07/18/23 08:19 Resp 18 07/18/23 08:19 BP 123/75 07/18/23 08:19 Pulse Ox 97 07/18/23 08:19 O2 Del Method Room Air 07/18/23 08:19 Allergies Allergy/AdvReac Type Severity Reaction Status Date / Time No Known Allergies Allergy Verified 07/18/23 08:12 Home Medications Medication Instructions Recorded Confirmed Type topiramate 50 mg tablet 100 mg PO DAILY #180 tabs 01/02/23 07/18/23 Rx albuterol sulfate 90 mcg/actuation 1 inh inhalation Q4H PRN shortness 05/01/23 07/18/23 Rx aerosol inhaler of breath or wheezing #8.5 grams apixaban 5 mg tablet (Eliquis) 5 mg PO BID #180 tabs 05/17/23 07/18/23 Rx cholecalciferol (vitamin D3) 1,250 1,250 mcg PO WEEKLY #8 caps 06/06/23 07/18/23 Rx mcg (50,000 unit) capsule duloxetine 60 mg capsule,delayed 60 mg PO DAILY #90 caps 06/06/23 07/18/23 Rx release Patient hx anesthesia problems: none Family hx anesthesia problems: none Results Review: All pre-operative results and documents have been reviewed as part of the pre-operative evaluation. [facility] Past Medical History Medical History Chicken pox Chronic bronchitis Depression History of blood clots Hypercoagulable state Migraine Obesity Rotator cuff tear Skin cancer Surgical History Surgical History History of bilateral tubal ligation History of carpal tunnel surgery History of repair of right rotator cuff History of surgery on arm left forearm median repair Hx laparoscopic cholecystectomy 11/01/21 Family History Family History Father Hypertension Family history of cardiovascular disease Family history of Alzheimer's disease Family history of dementia Heart disease Kidney disease Blood clot associated with vein wall inflammation Mother Diabetes mellitus Cerebrovascular accident Social History Social History Smoking packs per day: 0.5 Smoking cigarettes per day: 10.0 Years smoked: 15 Smoking pack-years: 7.50 Smoking status: Former smoker Tobacco type: cigarettes Smoking end date: 03/04/99 Alcohol intake: current Drinks per week: 2 Alcohol use details: 4-6 on weekends Substance use: never Substance use type: does not use Lack of Transportation: No Lack of Food: Never True Current Housing: I Have Housing Concerned About Future Housing: No Difficulty Paying Gas/Electric Bills: No Difficulty Paying for Meds: No Currently Unemployed: No Education: High School Diploma/GED Difficulty w/ Childcare or Family Care: No Living arrangements: with family Gender identity (if verbalized by the patient): Female Spiritual care concerns: No Anes - Eval Final PreProcedure Day of Procedure 07/18/23 09:15 Patient weight: obese Heart: regular rate and rhythm Lungs: clear to auscultation Airway: Mallampati scale class II Neurological: alert and oriented Last oral intake: >/= 8 hours ASA classification: III Emergent: no Anesthetic plan: proceed Anesthesia type and monitoring: general GIVS and standard monitoring Results Review: All pre-operative results and documents have been reviewed as part of the pre-operative evaluation. Informed Consent: The patient's anesthetic plan and its attendant risks and benefits were discussed with the patient/family/POA. Questions were solicited and answers provided to the satisfaction of the patient/family/POA.
[2023-07-18 09:39] VITALS: BP 105/54; PULSE 70; RESP 14; O2SAT 99
[2023-07-18 09:49] VITALS: BP 116/68; PULSE 73; RESP 16; O2SAT 100
--- NOTE | 2023-07-18 09:49 | WPDANESPN ---
Anes - Prog Note Post-Op Date/Time: 07/18/23 09:49 Cardiovascular status: normal Respiratory status: normal Airway patency: baseline Mental status: baseline Post-Op hydration status: normal Vital Signs: Last Vital Signs Temp 36.4 C 07/18/23 08:19 Pulse 88 07/18/23 08:19 Resp 18 07/18/23 08:19 BP 123/75 07/18/23 08:19 Pulse Ox 97 07/18/23 08:19 O2 Del Method Room Air 07/18/23 08:19 Pain Score (VAS): 0 I/O: Intake & Output 07/17/23 07/18/23 07/18/23 23:59 07:59 15:59 Intake Total 400 Balance 400 Patient Feedback: Patient satisfied with anesthetic care.
[2023-07-18 09:59] VITALS: BP 116/73; PULSE 69; RESP 17; O2SAT 100
== END 2023-07-18 10:09 | disposition home or self-care (01) ==
PROVIDERS: PCP Internal Medicine; Visit Provider Internal Medicine Gastroenterology
PROC: 0DJD8ZZ Inspection of Lower Intestinal Tract, Via Natural or Artificial Opening Endoscopic (ICD-10-PCS; CPT 45378; principal; 2023-07-18 09:30)
DX: Z12.11 Encounter for screening for malignant neoplasm of colon (principal); K64.8 Other hemorrhoids
CPT/HCPCS: 45378

== ENCOUNTER 2023-12-06 07:29 | Emergency (ER) | payer OTHER, SELFPAY ==
--- NOTE | ~2023-12-06 | US_ITS ---
Duplex Sonography of the right extremity: Indication: Pain and swelling Findings: Sagittal and transverse B-mode images as well as color-flow imaging were performed on the r ight femoral and popliteal veins. B-mode examination was done without and with compression in the tr ansverse plane. There is good visualization of the common femoral, proximal profunda femoral, superf icial femoral, greater saphenous, and popliteal veins. Normal flow was seen on color-flow imaging. N ormal compressibility was demonstrated. Visualized calf veins also patent. Impression: No evidence of deep vein thrombosis involving the right lower extremity. Reviewed, dictated and finalized at location M. Impression: No evidence of deep vein thrombosis involving the right lower extremity.
[2023-12-06 07:33] VITALS: BP 130/105; PULSE 98; RESP 15; TEMP 36.4; O2SAT 100
--- NOTE | 2023-12-06 07:42 | ED.EXTPRO ---
HPI - Extremity Problem General Chief complaint: Extremity Problem,Nontraumatic Stated complaint: right leg pain/DVT Time Seen by Provider: 12/06/23 07:31 Source: patient Mode of arrival: ambulatory Limitations: no limitations History of Present Illness HPI Narrative: This is a 58-year-old female, with history of right leg DVT, currently taking Eliquis, presents emergency department complaining right leg pain for the past 5 days. She describes the pain as 5/10, dull and cramping, throughout the foreleg and hip. She states this feels the same as previous episodes of DVTs in the right length. She states she bumped the leg shortly before the beginning of her symptoms. She has no other complaints at this time. Related Data Allergies Allergy/AdvReac Type Severity Reaction Status Date / Time No Known Allergies Allergy Verified 12/06/23 07:41 Review of Systems Review of Systems: All systems reviewed & are unremarkable except as noted in HPI and below PMFSH Past Medical History Medical History (Updated 12/06/23 @ 08:21 by Adam Hu MD) Acute DVT (deep venous thrombosis) Chicken pox Chronic bronchitis Depression History of blood clots Hypercoagulable state Migraine Obesity Rotator cuff tear Skin cancer Surgical History Surgical History History of bilateral tubal ligation History of carpal tunnel surgery History of repair of right rotator cuff History of surgery on arm left forearm median repair Hx laparoscopic cholecystectomy 11/01/21 Family History Family History Father Hypertension Family history of cardiovascular disease Family history of Alzheimer's disease Family history of dementia Heart disease Kidney disease Blood clot associated with vein wall inflammation Mother Diabetes mellitus Cerebrovascular accident Social History Social History Smoking packs per day: 0.5 Smoking cigarettes per day: 10.0 Years smoked: 15 Smoking pack-years: 7.50 Smoking status: Former smoker Tobacco type: cigarettes Smoking end date: 03/04/99 Alcohol intake: current Drinks per week: 2 Alcohol use details: 4-6 on weekends Substance use: never Substance use type: does not use Lack of Transportation: No Lack of Food: Never True Current Housing: I Have Housing Concerned About Future Housing: No Difficulty Paying Gas/Electric Bills: No Difficulty Paying for Meds: No Currently Unemployed: No Education: High School Diploma/GED Difficulty w/ Childcare or Family Care: No Living arrangements: with family Gender identity (if verbalized by the patient): Female Spiritual care concerns: No Exam Narrative: GENERAL: Well-developed, well-nourished, and in no acute distress. HEAD: Normocephalic, atraumatic. EYES: PERRLA and EOMI. CHEST: Clear to auscultation. No respiratory distress. No wheezes rales or rhonchi HEART: Regular rate and rhythm. No murmur heard. Normal peripheral pulses. EXTREMITIES: Tender to palpation over the anterior aspect of the right foreleg. Normal range of motion. No edema. SKIN: Warm, dry, no rash. NEURO: Alert and oriented x3. No focal deficit. Moving all 4 limbs spontaneously PSYCH: Normal mood and affect. Course Course Emergency Course: 08:20 - Ultrasound negative for DVT. On re-evaluation, the patient is tender palpation over the piriformis muscle on the right. Repeat sensory exam demonstrates mild paresthesias in the right great toe compared to the left. I suspect sciatica due to piriformis syndrome. Will discharge with recommendations for home physical therapy, muscle relaxers and pain management with NSAIDs. I advised the patient follow-up with her primary care doctor. I discussed the findings and recommendations with the patient. Discussed return and emergency pr
[2023-12-06] MEDS: ACETAMINOPHEN 500 MG TABLET 1000 MG PO (07:45)
[2023-12-06 08:27] VITALS: BP 120/69; PULSE 81; RESP 15; TEMP 36.4; O2SAT 97
== END 2023-12-06 08:29 | disposition home or self-care (01) ==
PROVIDERS: Emergency Provider Preventive Medicine Aerospace Medicine; PCP Internal Medicine
DX: G57.01 Lesion of sciatic nerve, right lower limb (principal); Z86.718 Personal history of other venous thrombosis and embolism; Z85.828 Personal history of other malignant neoplasm of skin; Z87.891 Personal history of nicotine dependence; Z90.49 Acquired absence of other specified parts of digestive tract; Z79.01 Long term (current) use of anticoagulants
CPT/HCPCS: 93971; 99284; A9270

== ENCOUNTER 2023-12-18 11:48 | Outpatient (CLI) | payer OTHER, SELFPAY ==
--- NOTE | ~2023-12-18 | XR_ITS ---
Lumbosacral Spine: AP and lateral views Clinical History: Pain Findings: The normal lordotic curve is maintained. 4 mm anterolisthesis of L4 over L5 present. There is moderate facet arthropathy, especially at L4-L5 and L5-S1. There are minimal degenerative changes. The sacroiliac joints are normally outlined. Impression: 4 mm anterolisthesis of L4 over L5. [id number] degenerative change, as above. Reviewed, dictated and finalized at location M. Impression: 4 mm anterolisthesis of L4 over L5. [id number] degenerative change, as above.
== END 2023-12-18 11:49 | disposition home or self-care (01) ==
PROVIDERS: PCP Internal Medicine; Visit Provider Nurse Practitioner
DX: M51.369 Other intervertebral disc degeneration, lumbar region without mention of lumbar back pain or lower extremity pain (principal)
CPT/HCPCS: 72100

== ENCOUNTER 2024-04-30 13:48 | Outpatient (CLI) | payer OTHER, SELFPAY | END 2024-04-30 13:49 | disposition home or self-care (01) | LOC: MICIMG 13:49 | PROVIDERS: PCP Internal Medicine; Visit Provider Internal Medicine | DX: Z12.31 Encounter for screening mammogram for malignant neoplasm of breast (principal) | CPT/HCPCS: 77063; 77067 ==